=== PATIENT | male | born 1945 | race Two or more races ===

== ENCOUNTER → 2019-07-25 09:10 | Outpatient (CLI) | payer OTHER | END | disposition home or self-care (01) | LOC: LAB 09:10 | DX: E11.9 Type 2 diabetes mellitus without complications (principal); I10 Essential (primary) hypertension; E03.8 Other specified hypothyroidism; E78.2 Mixed hyperlipidemia; N40.0 Benign prostatic hyperplasia without lower urinary tract symptoms ==

== ENCOUNTER → 2019-07-25 | Outpatient (CLI) | payer OTHER ==
[~2019-07-25] MED LIST: ATENOLOL25 GM; FINASTERIDE5 MG PO; FOLIC ACID0.4 MG; FUROSEMIDE10 MG/ML; GLIMEPIRIDE1 MG; TAMS0.4C; TAMS0.4C PO; URIN D.S. TABLE1 TAB PO; VITAMIN B-625 MG
== END | disposition home or self-care (01) ==
LOC: RAD 09:55
DX: R10.84 Generalized abdominal pain (principal); J44.9 Chronic obstructive pulmonary disease, unspecified

== ENCOUNTER → 2019-08-11 | Outpatient (CLI) | payer OTHER | END | disposition home or self-care (01) | LOC: TOM 07:15 | DX: J44.9 Chronic obstructive pulmonary disease, unspecified (principal) ==

== ENCOUNTER → 2020-04-01 | Outpatient (CLI) | payer OTHER | END | disposition home or self-care (01) | LOC: RAD 11:12 | PROVIDERS: ATTEND Internal Medicine Cardiovascular Disease | DX: J44.9 Chronic obstructive pulmonary disease, unspecified (principal) ==

== ENCOUNTER 2020-04-02 07:52 | Outpatient (CLI) | payer OTHER | END 2020-04-02 08:01 | disposition home or self-care (01) | LOC: LAB 07:52 | PROVIDERS: ATTEND Internal Medicine Cardiovascular Disease | DX: E03.8 Other specified hypothyroidism (principal); I10 Essential (primary) hypertension; E11.9 Type 2 diabetes mellitus without complications; E78.2 Mixed hyperlipidemia ==

== ENCOUNTER 2020-04-19 14:33 | Inpatient (IN) | payer OTHER ==
[~2020-04-19] VITALS: Ht 162.6 cm; Wt 56.7 kg
[2020-04-19] MEDS ORDERED: ISOSORBIDE DINI30 MG (16:04)
[2020-04-19] MEDS ORDERED: SYNTHROID50 MCG (16:04)
[2020-04-19] MEDS ORDERED: CARVEDILOL25 MG (16:05)
--- NOTE | 2020-04-19 16:05 | NUR ---
SE RECIBE PTE BALERTA Y ORIENTADO X3,REFERIDO POR EL DR.VICTOR DENNISON POR CHF TIENE HIPERTENCION.
--- NOTE | 2020-04-19 16:45 | NUR ---
SE ORIENTA PTE SPBRE TX MEDICO AL IGUAL QUE A FAMILIAR EL CUAL REFIERE ENTENDER.SE LE EXTRAEN MUESTRAS BAJO MEDIDAS ASEPTICAS,SE CANALIZA Y SE ADMINSTRAN MEDICAMENTOS [place] ORDEN MEDICA.SE NOTIFICA PLACA PENDIENTE,SE INSERTA ARROYO BAJO MEDIDAS ASEPTICAS.
--- NOTE | 2020-04-19 17:16 | NUR ---
SE ORIENTA PTE SOBRE TX MEDICO EL CUAL REFIERE ENTENDER.SE LE EXTRAEN MUESTRAS BAJO MEDIDAS ASEPTICAS,SE CANALIZA Y SE ADMINISTRA MEDICAMENTO [place] ORDEN MEDICA,SE NOTIFICA PLACA PENDIENTE.SE ORIENTA PTE SOBRE INSERCION DE ARROYO QUIEN REFIERE ENTENDER.CHUCK REFIERE USARA URINAL.
[2020-04-20] MEDS ORDERED: DIGOXIN125 MCG (10:45)
[2020-04-20] MEDS ORDERED: CLOPIDOGREL BIS75 MG (10:45)
[2020-04-20] MEDS ORDERED: SPIRONOLACTONE25 MG (10:45)
[2020-04-20] MEDS ORDERED: ISOSORBIDE MONO30 M2 (10:45)
[2020-04-20] MEDS ORDERED: GLIMEPIRIDE2 M1 (10:46)
== END 2020-04-28 01:05 | disposition expired | DRG 291 ==
LOC: ER 14:33 → SEC-K 18:35 → MEDJ 18:35
PROVIDERS: ADMIT Internal Medicine Cardiovascular Disease; ATTEND Internal Medicine Cardiovascular Disease
PROC: 4A033R1 Measurement of Arterial Saturation, Peripheral, Percutaneous Approach (ICD-10-PCS; principal; 2020-04-19)
PROC: 4A12X4Z Monitoring of Cardiac Electrical Activity, External Approach (ICD-10-PCS; 2020-04-19)
PROC: 3E0F7GC Introduction of Other Therapeutic Substance into Respiratory Tract, Via Natural or Artificial Opening (ICD-10-PCS; 2020-04-19)
PROC: BW40ZZZ Ultrasonography of Abdomen (ICD-10-PCS; 2020-04-19)
PROC: BB24ZZZ Computerized Tomography (CT Scan) of Bilateral Lungs (ICD-10-PCS; 2020-04-19)
PROC: B246ZZZ Ultrasonography of Right and Left Heart (ICD-10-PCS; 2020-04-19)
PROC: 0W9930Z Drainage of Right Pleural Cavity with Drainage Device, Percutaneous Approach (ICD-10-PCS; 2020-04-21)
PROC: 0BH17EZ Insertion of Endotracheal Airway into Trachea, Via Natural or Artificial Opening (ICD-10-PCS; 2020-04-27)
DX: I13.2 Hypertensive heart and chronic kidney disease with heart failure and with stage 5 chronic kidney disease, or end stage renal disease (principal); I50.23 Acute on chronic systolic (congestive) heart failure; J16.8 Pneumonia due to other specified infectious organisms; N18.5 Chronic kidney disease, stage 5; J91.8 Pleural effusion in other conditions classified elsewhere; I31.3 Pericardial effusion (noninflammatory); N13.39 Other hydronephrosis; I42.0 Dilated cardiomyopathy; R33.8 Other retention of urine; E11.21 Type 2 diabetes mellitus with diabetic nephropathy; E11.621 Type 2 diabetes mellitus with foot ulcer; T83.091A Other mechanical complication of indwelling urethral catheter, initial encounter; Z20.828 Contact with and (suspected) exposure to other viral communicable diseases